=== PATIENT | male | born 1960 | race African-American/Black ===

== ENCOUNTER 2019-04-16 13:20 | Emergency (ER) | payer OTHER ==
[2019-04-16] MEDS ORDERED: Lidocaine-Prilocaine 2.5% Cream 5 GM TUBE ONE (14:07)
== END 2019-04-16 14:43 | disposition home or self-care (01) ==
LOC: MADERS 13:20
DX: S81.812A Laceration without foreign body, left lower leg, initial encounter (principal); W20.8XXA Other cause of strike by thrown, projected or falling object, initial encounter
CPT/HCPCS: 12001

== ENCOUNTER 2024-01-20 09:32 | Emergency (ER) | payer BC, SELFPAY ==
[2024-01-20] MEDS ORDERED: Orphenadrine Citrate 60 MG/2 ML VIAL ONE (09:52)
== END 2024-01-20 10:15 | disposition home or self-care (01) ==
LOC: MADERS 09:32
DX: M54.31 Sciatica, right side (principal); E11.9 Type 2 diabetes mellitus without complications; F17.210 Nicotine dependence, cigarettes, uncomplicated
CPT/HCPCS: 99283; J2360

== ENCOUNTER 2024-05-20 02:49 | Emergency (ER) | payer BC | END 2024-05-20 04:00 | disposition home or self-care (01) | LOC: MADERS 02:49 | DX: R42 Dizziness and giddiness (principal); F17.210 Nicotine dependence, cigarettes, uncomplicated; E11.9 Type 2 diabetes mellitus without complications; Z79.84 Long term (current) use of oral hypoglycemic drugs | CPT/HCPCS: 36416; 93005; 99284 ==